=== PATIENT | female | born 1945 | race Caucasian/White ===

== ENCOUNTER 2016-08-14 09:09 | Day surgery (SDC) | payer MEDICARE ==
[~2016-08-14] VITALS: Ht 165.1 cm; Wt 59.9 kg
[2016-08-14] MEDS ORDERED: LEVOTHYROXINE50 MCG PO (09:58)
[2016-08-14] MEDS ORDERED: DEXILANT60 MG PO (09:58)
[2016-08-14] MEDS ORDERED: PREMPRO 0.3 MG-1 TAB PO (09:58)
[2016-08-14] MEDS ORDERED: ACETAMINOPHEN500 M1 PO (09:59)
[2016-08-14 10:29] VITALS: BP 138/81; Ht 165.1 cm; Wt 59.9 kg
[2016-08-14 10:53] LABS: HEMATOCRIT 41.5 % (36.0-48.0); HEMOGLOBIN 13.8 g/dL (12-16); MCH 30.5 pg (26.0-34.0); MCHC 33.3 g/dL (31.0-37.0); MCV 91.8 fL (80.0-100.0); MEAN PLATELET VOLUME 9.5 fL (7.4-10.4); RBC 4.52 10x6/uL (4.00-5.40); RDW 13.6 % (11.5-14.5)
--- NOTE | 2016-08-14 15:34 | NUR ---
1515 IV DC WITH CATHER TIP INTACT
== END 2016-08-14 15:30 | disposition home or self-care (01) ==
LOC: D.OPS 09:09
PROVIDERS: Anesthesiology
DX: M16.0 Bilateral primary osteoarthritis of hip (principal)